=== PATIENT | male | born 1970 | race Caucasian/White ===

== ENCOUNTER 2017-01-16 23:59 | Emergency (ER) | payer MEDICARE ==
--- NOTE | ~2017-01-16 | CT71 ---
[facility] A Service [facility] RADIOLOGY TEXT RESULTS PATIENT: MAGALYS WARD LOCATION: SED : 71 UNIT #: [id number] AGE: [address]: Camryn Kwok MD SEX: M ORDER DR: [id number] [place] [id number] E MR#: [id number] Acc #: [id number] NAME: MAGALYS WARD. : 1970 SEX: M STUDY DATE/TIME: 01/17/2017 0:05 UNIT: SED ROOM: STUDY DESCRIPTION: CT Head Wo Contrast Attending Physician: Camryn Kwok M.D. Ordering Physician: Camryn Kwok M.D. Primary Care Physician: No Primary Care Physician MEDICAL IMAGING REPORT This report is preliminary unless electronic signature is present. EXAMINATION Noncontrast CT head. DATE 01/17/2017 at 00:05 HISTORY 46-year-old male with dizziness. Sudden onset sharp pain radiating from the lower back to the head and became dizzy with bilateral pain tonight. COMPARISON None. TECHNIQUE This CT exam was performed with one or more of the following radiation dose reduction techniques: automatic control, adjustment of mA and/or kV according to patient size, and iterative reconstruction. FINDINGS No acute intracranial hemorrhage, mass lesion, mass effect or midline shift is seen and there is no CT evidence of acute or evolving infarct. Ash matter - white matter junction distinction appears preserved. Ventricular configuration is within normal limits. Mild flattening of the right parietal calvaria likely representing chronic sequelae of positional plagiocephaly. The mastoid air cells are clear. Major paranasal sinuses appear clear. IMPRESSION No acute intracranial abnormality. Dictated by... Chasity Garduno M.D. [facility] A Service [facility] RADIOLOGY TEXT RESULTS PATIENT: MAGALYS WARD LOCATION: SED : 71 UNIT #: [id number] AGE: [address]: Camryn Kwok MD SEX: M ORDER DR: THIS IS AN ELECTRONICALLY VERIFIED REPORT Chasity Garduno M.D. at 01/17/2017 6:02 AM LISA/aviva TD: 01/17/2017 02:49 JOB #: [id number] MEDICAL IMAGING REPORT Page 1 of 1
--- NOTE | ~2017-01-16 | CT96 ---
[facility] A Service of [facility] RADIOLOGY TEXT RESULTS PATIENT: MAGALYS WARD LOCATION: SED : 71 UNIT #: [id number] AGE: [address]: Camryn Kwok MD SEX: M ORDER DR: [id number] [place] [id number] E MR#: [id number] Acc #: [id number] NAME: MAGALYS WARD. : 1970 SEX: M STUDY DATE/TIME: 01/17/2017 1:22 UNIT: SED ROOM: STUDY DESCRIPTION: CT Lumbar Spine W Cont Attending Physician: Camryn Kwok M.D. Ordering Physician: Camryn Kwok M.D. Primary Care Physician: No Primary Care Physician MEDICAL IMAGING REPORT This report is preliminary unless electronic signature is present. EXAM CT lumbar spine with contrast DATE 01/17/2017 HISTORY 46-year-old male with sudden onset sharp pain radiating from the lower back to the head. Bilateral lower extremity pain tonight. No documented injury. COMPARISON Lumbar spine plain films 07/26/2015. CT abdomen and pelvis bone windows 01/24/2015. PROCEDURE 2 mm axial images were obtained of the lumbar spine after IV contrast administration. Sagittal and coronal reformatted images were obtained. This CT exam was performed with one or more of the following radiation dose reduction techniques: automatic control, adjustment of mA and/or kV according to patient size, and iterative reconstruction. FINDINGS Posterior spinal fusion changes are present at L4-5. There is partial osseous fusion across the L4-5 and L5-S1 discs. There is chronic-appearing Schmorl node protrusion versus mild chronic concavity of superior endplate of L3. Laminectomy changes are thought to be present on the left at L5. T12-L1, no significant disc bulge, canal of foraminal stenosis is seen. At L1-2, there is mild left lateral recess - subarticular disc bulge [facility] A Service [facility] RADIOLOGY TEXT RESULTS PATIENT: MAGALYS WARD LOCATION: SED : 71 UNIT #: [id number] AGE: [address]: Camryn Kwok MD SEX: M ORDER DR: resulting in mild left inferior neural foraminal narrowing. No significant canal stenosis. At L2-3, no significant disc bulge, canal or foraminal stenosis. At L3-4, there is mild concentric disc bulge barely indenting the thecal sac. No high-grade canal or foraminal stenosis is seen. At L3-4, there is mild concentric disc bulge slightly eccentric to the left subarticular region. Borderline canal stenosis. Mild right, [id number] left inferior neural foraminal narrowing. At L4-5, bilateral left greater right subarticular disc osteophytes are present. No significant disc bulge. Mild left greater than right inferior neural foraminal narrowing. Anterior paraspinal soft tissues are normal. IMPRESSION 1. Bilateral pedicle screw and vertical fusion eve changes at L4-5. Partial osseous fusion across the L4-5 and L5-S1 discs. Presumed left laminectomy changes at L5. 2. Beam-hardening artifact related to the patient's hardware obscures several of the images. 3. No high-grade canal stenosis is seen at any lumbar level. Multilevel degenerative changes as described in the report. Dictated by... Chasity Garduno M.D. THIS IS AN ELECTRONICALLY VERIFIED REPORT Chasity Garduno M.D. at 01/17/2017 6:01 AM LISA/aviva TD: 01/17/2017 05:03 JOB #: [id number] MEDICAL IMAGING REPORT Page 1 of 1
--- NOTE | ~2017-01-16 | EKG ---
PATIENT: MAGALYS WARD UNIT #: [id number] Ventricular Rate: 88 BPM Atrial Rate: 88 BPM P-R Interval: 174 ms QRS Duration: 106 ms Q-T Interval: 348 ms QTC Calculation(Bezet): 421 ms P [place]: 69 degrees Calculated R [place]: -30 degrees Calculated T [place]: 64 degrees Diagnosis Line: Normal sinus rhythm Diagnosis Line: Left axis deviation Diagnosis Line: Incomplete right bundle branch block Diagnosis Line: Otherwise normal ECG Diagnosis Line: No previous ECGs available Diagnosis Line: Confirmed by LATOSHA WARD MD ([id number]) on 01/21/2017 Diagnosis Line: 9:25:01 AM INTERPRETING MD: ED ORTIZ
[2017-01-16 23:58] LABS: BASOPHIL# 0.1 X10e3 (0-0.3); BASOPHIL% 0.6 % (0-2.5); DIFF IND NO; EOSINOPHIL# 0.1 X10e3 (0-0.7); EOSINOPHIL% 0.7 % (0.0-7.0); HEMOGLOBIN 14.2 gm/dL (13.0-16.0); LYMPHOCYTE# 1.5 X10e3 (1.0-3.5); LYMPHOCYTE% 10.3 % (17.0-45.0); MEAN CELL VOLUME 89.2 FL (83-96); MEAN CORPUSCULAR HEMOGLOBIN 30.2 PG (28-34); MEAN CORPUSCULAR HGB CONC 33.8 g/dL (30-36); MEAN PLATELET VOLUME 8.4 FL (6.5-11.5); MONOCYTE% 6.9 % (3.0-12.0); NEUTROPHIL# 11.8 X10e3 (1.5-7.1); NEUTROPHIL% 81.5 % (40-75); PLATELET COUNT 172 X10e3 (140-420); RED BLOOD COUNT 4.71 X10e (3.90-5.60); RED CELL DISTRIBUTION WIDTH 13.4 % (11.0-15.5); WHITE BLOOD COUNT 14.5 X10e3 (4.0-10.5)
[~2017-01-16 23:59] MED LIST: AMITRIPTYLINE H25 MG PO; AMITRYPTYLINE PO; AUGMENTIN875 M1 PO; BACLOFEN10 MG PO; BACTRIM DS TABL1 TA1 PO; BACTRIM DS TABL1 TAB PO; COLACE PO; FLEXERIL10 M1 PO; HYDROCODON-ACE1 EAC9 PO; KEFLEX PO; KEFLEX500 M1 PO; LORTAB 10/500 T1 TAB PO; MAGNESIUM400 MG PO; MEDROL4 MG/DOSE- PO; MOBIC PO; NO MEDICATIONS; NORCO1 TAB 10/3 PO; REMERON PO; VICODIN ES 7.51 EAC1 PO; [UNRECOGNIZED DRUG - REMARK]; [UNRECOGNIZED DRUG - REMARK]
[2017-01-17 00:10] LABS: POC - CKMB <1.0 ng/mL (0.0-7.9); POC - TROPONIN <0.05 ng/mL (<=0.05)
[2017-01-17 00:14] LABS: BILIRUBIN, DIRECT 0.1 mg/dL (0.0-0.2); BILIRUBIN,INDIRECT 0.2 mg/dL (0.0-0.9); BILIRUBIN,TOTAL 0.3 mg/dL (0.2-2.0); CALCIUM SERUM 8.7 mg/dL (8.4-10.2); GLOM FILT RATE Estimated 90.5 mL/min (>60); POTASSIUM 3.8 mmol/L (3.5-5.1); PROTEIN TOTAL SERUM 7.3 g/dL (6.0-8.3)
[2017-01-17 00:48] LABS: URINE SOURCE CLEAN CATCH
[2017-01-17 00:50] LABS: URINE APPEARANCE CLEAR; URINE BILIRUBIN NEG (NEG); URINE BLOOD NEG (NEG); URINE COLOR YELLOW; URINE GLUCOSE NEG (NORM); URINE KETONE NEG (NEG); URINE LEUKOCYTE ESTERASE NEG (NEG); URINE NITRATE NEG (NEG); URINE PROTEIN NEG (NEG); URINE SPECIFIC GRAVITY 1.015 (1.003-1.035)
[2017-01-17 00:52] LABS: MICRO INDICATED? NO
== END 2017-01-17 02:09 | disposition home or self-care (01) ==
LOC: SED 23:59
PROVIDERS: Emergency Medicine
DX: R51 Headache (principal); M54.5 Low back pain; F17.210 Nicotine dependence, cigarettes, uncomplicated; Z86.718 Personal history of other venous thrombosis and embolism; Z98.890 Other specified postprocedural states; Z88.8 Allergy status to other drugs, medicaments and biological substances; Z79.899 Other long term (current) drug therapy
CPT/HCPCS: 36415; 70450; 72132; 80048; 80076; 81003; 82553; 84484; 85025; 93005; 96374; 96375; 99284; J1200; J2765; Q9967

== ENCOUNTER 2017-04-08 23:20 | Emergency (ER) | payer MEDICARE ==
[~2017-04-08] VITALS: Ht 188 cm; Wt 81.6 kg
--- NOTE | ~2017-04-08 | CR181 ---
[facility] A Service of [facility] RADIOLOGY TEXT RESULTS PATIENT: MAGALYS WARD LOCATION: SED : 71 UNIT #: [id number] AGE: [address]: Catherine Addison SEX: M ORDER DR: [id number] [place] [id number] E MR#: [id number] Acc #: [id number] NAME: MAGALYS WARD. : 1970 SEX: M STUDY DATE/TIME: 04/09/2017 0:45 UNIT: SED ROOM: STUDY DESCRIPTION: CR Lumbar Spine 2 or 3 Views Attending Physician: Catherine Addison Pa-C Ordering Physician: Catherine Addison Pa-C Primary Care Physician: No Primary Care Physician MEDICAL IMAGING REPORT This report is preliminary unless electronic signature is present. EXAM Lumbar spine series INDICATIONS Lower back pain for the past 2 days. PROCEDURE 3 views of the lumbar spine. COMPARISON 07/26/2015 FINDINGS Lumbar bodies have normal height. Previous posterior fusion at L4-L5. Alignment is stable. IMPRESSION No acute findings. No change from 07/26/2015. Dictated by... Ned Corrigan M.D. THIS IS AN ELECTRONICALLY VERIFIED REPORT Ned Corrigan M.D. at 04/09/2017 9:53 PM Glory TD: 04/09/2017 11:06 JOB #: [id number] MEDICAL IMAGING REPORT Page 1 of 1
== END 2017-04-09 01:27 | disposition home or self-care (01) ==
LOC: SED 23:20
DX: S39.012A Strain of muscle, fascia and tendon of lower back, initial encounter (principal); Z86.718 Personal history of other venous thrombosis and embolism; F17.210 Nicotine dependence, cigarettes, uncomplicated; X58.XXXA Exposure to other specified factors, initial encounter; Y92.009 Unspecified place in unspecified non-institutional (private) residence as the place of occurrence of the external cause; Z88.8 Allergy status to other drugs, medicaments and biological substances
CPT/HCPCS: 72100; 96372; 99283; J1885; J2360